=== PATIENT | female | born 1950 | race Native Hawaiian/Other Pacific Islander ===

== ENCOUNTER → 2016-08-07 | Outpatient (CLI) | payer BC ==
[~2016-08-07] MED LIST: ATIVAN0.5 MG PO; CARAFATE1 GM PO; CITRACAL + D CA1 TAB PO; FEXOFENADINE180 MG PO; GAS AID MAXIMU125 MG PO; NEXIUM40 MG PO; SYNTHROID0.075 MG PO
== END ==
LOC: MC.RAD 09:40
DX: Z12.31 Encounter for screening mammogram for malignant neoplasm of breast (principal); N63 Unspecified lump in breast

== ENCOUNTER → 2016-09-08 | Outpatient (CLI) | payer BC | LOC: BHSO 09:14 | DX: F41.1 Generalized anxiety disorder (principal) ==

== ENCOUNTER → 2017-04-06 | Outpatient (CLI) | payer BC | LOC: BHSO 09:44 | DX: F41.1 Generalized anxiety disorder (principal) | CPT/HCPCS: G0463 ==

== ENCOUNTER → 2017-08-13 | Outpatient (CLI) | payer BC | LOC: MC.RAD 07:20 | DX: Z12.31 Encounter for screening mammogram for malignant neoplasm of breast (principal) ==

== ENCOUNTER → 2018-09-07 | Outpatient (CLI) | payer BC | LOC: MC.RAD 10:56 | DX: Z12.31 Encounter for screening mammogram for malignant neoplasm of breast (principal) ==